=== PATIENT | female | born 1945 | race Caucasian/White ===

== ENCOUNTER 2024-01-13 16:55 | Outpatient (CLI) | payer MEDICARE, OTHER | END 2024-01-13 23:59 | disposition critical access hospital (66) | LOC: EMS 16:55 | DX: R07.89 Other chest pain (principal); F41.9 Anxiety disorder, unspecified | CPT/HCPCS: A0425; A0427 ==

== ENCOUNTER 2024-01-13 17:18 | Emergency (ER) | payer MEDICARE, OTHER ==
[2024-01-13 18:36] LABS: BASOPHILS # (AUTO) 0.1 10^3/uL (0.0-0.1); EOSINOPHILS # (AUTO) 0.2 10^3/uL (0.0-0.7); EOSINOPHILS % (AUTO) 3.2 %; HGB - HEMOGLOBIN 9.9 g/dL (12.0-16.0); LYMPHOCYTES # (AUTO) 2.3 10^3/uL (1.5-3.5); LYMPHOCYTES % (AUTO) 33.8 %; MEAN CORPUSCULAR HEMOGLOBIN 30.1 pg (27.0-31.0); MEAN CORPUSCULAR VOLUME 91.2 fL (81.0-99.0); MEAN PLATELET VOLUME 9.8 fL (7.9-10.8); MONOCYTES # (AUTO) 0.4 10^3/uL (0.0-1.0); MONOCYTES % (AUTO) 5.3 %; NEUTROPHILS # (AUTO) 3.8 10^3/uL (1.5-6.6); NEUTROPHILS % (AUTO) 56.3 %; PLT - PLATELET COUNT 308 10^3/uL (130-450); RED BLOOD COUNT 3.29 10^6/uL (4.20-5.40); RED CELL DISTRIBUTION WIDTH 15.1 % (12.0-15.0); WHITE BLOOD COUNT 6.8 x10^3/uL (4.8-10.8)
--- NOTE | 2024-01-13 18:44 | XRAY Report ---
PROCEDURE: Chest 1V INDICATIONS: Chest Pain TECHNIQUE: One view of the chest was acquired. COMPARISON: None. FINDINGS: Surgical changes and devices: None. Lungs and pleura: No pleural effusions or pneumothorax. Lungs are clear. Mediastinum: Mediastinal contours appear normal. Heart size is mildly enlarged. Bones and chest wall: No suspicious bony lesions. Overlying soft tissues appear unremarkable. IMPRESSION: No acute cardiopulmonary process. Reviewed by: Gemma Dey MD on 01/13/2024 6:42 PM PDT Approved by: Gemma Dey MD on 01/13/2024 6:42 PM PDT Station ID: [id number]
[2024-01-13 18:50] LABS: ALBUMIN 4.3 g/dL (3.2-5.5); ALBUMIN/GLOBULIN RATIO 1.5 (1.0-2.2); BILIRUBIN,TOTAL 0.4 mg/dL (0.2-1.0); CALCIUM 10.6 mg/dL (8.5-10.3); CREATININE 2.1 mg/dL (0.6-1.3); POTASSIUM 3.4 mmol/L (3.5-4.5); TOTAL PROTEIN 7.1 g/dL (6.4-8.9)
--- NOTE | 2024-01-13 18:50 | ED Physician Documentation ---
PD HPI CHEST PAIN - Stated complaint Stated Complaint: CHEST PAIN - Chief complaint Chief Complaint: Cardiac - Additional information Additional information: 78-year-old female presents emergency department for chest pain. She originally presented to her primary care provider's office for further evaluation of her chest pain and generalized body discomfort her EKG was normal there and they sent her here to the ER for further evaluation. Patient just had a stay at [facility] where she had an extensive workup done including echocardiogram colonoscopy endoscopy stress test and no significant acute abnormalities were found. Patient's daughter used to be her seed collector about 5 months ago and her granddaughter has started to help out with caretaking but she was recently deployed. She has in-home visiting [place] who have been helping her with ADLs and medication management. She also was recently admitted to a rehab facility where her primary care provider thinks she may benefit from being admitted to a long term facility or assisted living. Patient appears to be confused she says that she is having chronic chest pain and does not feel any different from her normal chest pain that she normally experiences she also recently got a colostomy bag about 4 months ago and says that she is having some abdominal discomfort. No dysuria urinary urgency very difficult gathering history from her I did speak at great length with patient's granddaughter Milagro who is her caregiver and power of attorney lawyer but is currently deployed who says that she also has a known diagnoses of dementia. PD PAST MEDICAL HISTORY - Past Medical History Past Medical History: Yes Cardiovascular: High cholesterol Respiratory: None Neuro: None Endocrine/Autoimmune: None GI: Diverticulitis PULP BLEACHER: None : Other HEENT: None Psych: Anxiety, Panic attacks Musculoskeletal: None Derm: None - Past Surgical History Past Surgical History: Yes General: Bowel surgery Ortho: Other - Present Medications Home Medications: Ambulatory Orders Medication Instructions Recorded Confirmed Acetaminophen [Tylenol] 1 tab PO PRN PRN 01/13/24 01/13/24 Atorvastatin [Lipitor] 1 tab PO DAILY 01/13/24 01/13/24 Chlorthalidone 1 tab PO DAILY 01/13/24 01/13/24 Gabapentin [Neurontin] 1 cap PO DAILY 01/13/24 01/13/24 Hyoscyamine [Levsin] 1 tab PO DAILY 01/13/24 01/13/24 Pantoprazole Sodium 1 tab PO DAILY 01/13/24 01/13/24 Sucralfate [Carafate] 1 applic PO DAILY 01/13/24 01/13/24 Tizanidine HCl 1 tab PO DAILY 01/13/24 01/13/24 methocarbamoL [Methocarbamol] 1 tab PO DAILY 01/13/24 01/13/24 traMADol [Ultram] 1 tab PO DAILY 01/13/24 01/13/24 - Allergies Allergies/Adverse Reactions: Allergies Allergy/AdvReac Type Severity Reaction Status Date / Time Sulfa (Sulfonamide Allergy Unknown Verified 01/13/24 17:43 Antibiotics) - Social History Does the pt smoke?: No Smoking Status: Never smoker Does the pt have substance abuse?: No PD ED PE NORMAL - Vitals Vital signs reviewed: Yes - General General: Alert and oriented X 3, No acute distress, Well developed/nourished - HEENT HEENT: Atraumatic, PERRL, Other (white foam surronding lips and corner of mouth. ) - Neck Neck: Supple, no meningeal sign - Cardiac Cardiac: RRR, No murmur, No gallop, Strong equal pulses - Respiratory Respiratory: No respiratory distress - Abdomen Abdomen: Normal bowel sounds, Soft, Non tender, Non distended, Other (Left colostomy bag intact, normal bowel output) - Back Back: No CVA TTP - Derm Derm: Normal color, Warm and dry, No rash - Extremities Extremities: No deformity, No edema, No calf tenderness / cord - Neuro Neuro: Alert and oriented X 3, api product manager 2-12 intact, No motor deficit, No sensory deficit, Normal speech Eye Opening: Spontaneous Motor: Obeys Commands Verbal: Oriented GCS Score: 15 PD ED PE EXPANDED - Psych Psych: Anxious Results - Vitals Vitals: Vital Signs - 24 hr 01/13/24 01/13/24 01/13/24 17:26 17:38 19:38 Temperature 36.6 C 36.2 C L Heart Rate 67 84 Respiratory 26 H 16 Rate Blood Pressure 144/65 H 125/94 H Blood Pressure 144/65 H [Right] O2 Saturation 95 99 01/13/24 01/13/24 01/13/24 21:00 22:36 23:56 Temperature 36.2 C L 36.1 C L 36.2 C L Heart Rate 84 61 84 Respiratory 16 16 16 Rate Blood Pressure 133/84 H 137/64 H 122/68 Blood Pressure [Right] O2 Saturation 100 98 99 Oxygen O2 Source Room air - EKG (time done) 8277 EKG releavant findings:: EKG personally interpreted by author of this note. Relevant findings are: Rate: Rate (enter#) (66) Rhythm: NSR [place]: Normal Intervals: Normal SD QRS: Normal Ischemia: Normal ST segments Computer interpretation: Agree with computer - Labs Labs: Laboratory Tests 01/13/24 01/13/24 01/13/24 18:12 18:12 18:12 WBC 6.8 RBC 3.29 L Hgb 9.9 L Hct 30.0 L MCV 91.2 MCH 30.1 MCHC 33.0 RDW 15.1 H Plt Count 308 MPV 9.8 Neut # (Auto) 3.8 Lymph # (Auto) 2.3 Gage # (Auto) 0.4 Eos # (Auto) 0.2 Baso # (Auto) 0.1 Absolute Nucleated RBC 0.00 Nucleated RBC % 0.0 Sodium 137 Potassium 3.4 L Chloride 104 Carbon Dioxide 20 L Anion Gap 13.0 BUN 39 H Creatinine 2.1 H Estimated GFR (MDRD) 23 L Glucose 81 Calcium 10.6 H Magnesium 1.7 Total Bilirubin 0.4 AST 15 ALT 7 L Alkaline Phosphatase 54 Troponin I High Sens 9.2 Total Protein 7.1 Albumin 4.3 Globulin 2.8 Albumin/Globulin Ratio 1.5 Lipase 54 - Rads (name of study) Chest Xray Relevant Findings:: Final report received, EMP independent interpretation of test, Other (No acute cardiopulmonary abnormalities) CT abd/pelvis w/out Relevant Findings:: Final report received, EMP independent interpretation of test, Other (Diverticulosis without diverticulitis, Single punctate nonobstructing left-sided nephrolithiasis. 1.7 cm hypoattenuating lesion at liver dome segment 2) PD Medical Decision Making - ED course ED course: Exam without evidence of volume overload so doubt heart failure. EKG without signs of active ischemia. Given the timing of pain to ER presentation, single troponin was negative so doubt NSTEMI. Presentation not consistent with acute PE (PERC negative),pneumothorax (not visualized on chest xr), thoracic aortic dissection, pericarditis, tamponade, pneumonia (no infectious symptoms, clear chest xr), myocarditis (no recent illness, neg trop). HEART score: 2 so plan to Discharge patient. Patient appears to be suffering from severe anxiety and panic her granddaughter Milagro also states that she has had a very extensive workup inpatient outpatient for her chronic chest pain and it has increased since her daughter about [address] abdomen pelvis without contrast was also complete for further evaluation and again no acute abnormal findings. She does have a liver lesion that was known from her recent [facility] workup. She has close contact with her primary care provider as well as a lot of support with in-home caregivers from [employer]. She appears to have mild anemia hemoglobin 9.9 no dark black bowel movements most likely chronic although I do not have any previous labs on the patient. She does have known chronic kidney disease her GFR is 23 again I do not have any previous labs to compare these kidney function labs to but her granddaughter Milagro confirms that she does have known chronic kidney disease and patient is making urine. 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 Return precautions given to patient all questions answered patient is safe for discharge at this time. Departure - Departure Disposition: 01 Home, Self Care Clinical Impression: Chest pain, Anxiety Instructions: ED Panic Attack Comments: Thank you for trusting us with your care. We have completed a very thorough workup and we are not seeing any acute abnormal findings at this point in time. Please follow-up with your primary care provider about possible admission to a long term facility to help with managing your medications and your chronic chest pain. Please come back to the ER if you are having any worsening symptoms. Forms: PCP List Discharge Date/Time: 01/13/24 23:56
[2024-01-13 18:56] LABS: TROPONIN I HIGH SENSITIVITY 9.2 ng/L (2.3-14.8)
[2024-01-13] MEDS: KETOROLAC 15 MG/ML VIAL IVP STA ×2 (19:00→19:09)
[2024-01-13] MEDS: OLANZapine ODT 5 MG TABLET TL ONE (19:01)
[2024-01-13] MEDS: ACETAMINOPHEN 500 MG TABLET PO STA (19:01)
[2024-01-13] MEDS: DROPERIDOL 5 MG/2 ML VIAL IVP STA (19:57)
[2024-01-13] MEDS: MORPHINE 10 MG/ML VIAL IVP STA (20:33)
--- NOTE | 2024-01-13 21:02 | CT Report ---
PROCEDURE: Abdomen/Pelvis WO INDICATIONS: LLQ pain TECHNIQUE: A CT scan of the abdomen and pelvis was performed without the use of intravenous contrast. Images we re recorded and evaluated at appropriate window settings. Reformats: coronal and sagittal. For radiat ion dose reduction, the following was used: automated exposure control, adjustment of mA and/or kV ac cording to patient size. COMPARISON: Same day chest x-ray. FINDINGS: Image quality: Suboptimal due to motion artifact. Lower chest: Scarring in the anterior right middle lobe. Three-vessel coronary calcifications. Small hiatal hernia. Liver: 1.7 cm hypoattenuating lesion at the liver dome in segment 2 (series 2, image 42). Subcapsular hypoattenuation along the inferior margin of the right hepatic lobe (series 4, image 74). Gallbladder: No radiopaque stones or wall thickening. Biliary tree: No intrahepatic or extrahepatic dilation, accounting for age. Spleen: No splenomegaly. Pancreas: No pancreatic ductal dilation. Adrenals: No adrenal nodule. Kidneys and ureters: No hydronephrosis. No contour-deforming mass. Punctate nonobstructing left-sided nephrolithiasis. Stomach, bowel and peritoneum: No gastric or small bowel dilation. No abnormal wall thickening. No pa thologic free fluid. Partial colectomy, with left lower quadrant diverting colostomy. Colonic diverti culosis without evidence of diverticulitis. Lymph nodes: No central or retroperitoneal adenopathy. Vessels: No infrarenal aortic aneurysm. Reproductive organs: Unremarkable. Bladder: Bladder wall thickness is normal, accounting for underdistention. No calcified bladder stone s. Pelvic lymph nodes: No adenopathy by size criteria. Bones: No aggressive osseous abnormality. Degenerative changes of the spine. Right hip arthroplasty. Other: No significant ventral or inguinal hernia. IMPRESSION: No acute findings to explain the left lower quadrant pain. Colonic diverticulosis without evidence of diverticulitis. Single, punctate, nonobstructing left-sided nephrolithiasis. Subcapsular, linear hypoattenuation along the inferior margin of the right hepatic lobe. Differentia l favors artifact over subcapsular hematoma. Correlate with recent history of trauma. 1.7 cm hypoattenuating lesion at the liver dome in segment 2. Findings could represent metastatic dis ease given history of partial colectomy with diverting colostomy. Further workup with outpatient MRI should be considered, if not performed in the past (hepatic mass protocol). Reviewed by: Misael Portillo MD on 01/13/2024 9:01 PM PDT Approved by: Misael Portillo MD on 01/13/2024 9:01 PM PDT Station ID: [id number]
[2024-01-14 00:21] VITALS: BP 122/68; O2SAT 99
== END 2024-01-13 23:56 | disposition home or self-care (01) ==
LOC: ED 17:18
DX: R07.9 Chest pain, unspecified (principal); F41.9 Anxiety disorder, unspecified; E78.00 Pure hypercholesterolemia, unspecified; Z79.899 Other long term (current) drug therapy; Z93.3 Colostomy status; N18.9 Chronic kidney disease, unspecified
CPT/HCPCS: 36415; 71045; 74176; 80053; 83690; 83735; 84484; 85025; 93005; 96374; 96375; 99284; A9270

== ENCOUNTER 2024-01-20 13:51 | Outpatient (CLI) | payer MEDICARE, OTHER | END 2024-01-20 23:59 | disposition left against medical advice (07) | LOC: EMS 13:51 | DX: R07.89 Other chest pain (principal); F41.9 Anxiety disorder, unspecified; R42 Dizziness and giddiness; R51.9 Headache, unspecified ==

== ENCOUNTER 2024-02-17 08:00 | Outpatient (CLI) | payer MEDICARE, OTHER | END 2024-02-17 23:59 | disposition home or self-care (01) | LOC: LAB.N 08:00 | PROVIDERS: ATTEND Nurse Practitioner | DX: R42 Dizziness and giddiness (principal) | CPT/HCPCS: 82962 ==